=== PATIENT | male | born 1950 | race Caucasian/White ===

== ENCOUNTER 2019-02-16 19:43 | Inpatient (IN) | payer OTHER ==
--- NOTE | 2019-02-16 20:12 | PDOC ---
Rapid Medical Evaluation Time Seen by Provider: 02/16/19 20:10 Medical Evaluation: Allergies Allergy/AdvReac Type Severity Reaction Status Date / Time No Known Allergies Allergy Verified 11/02/15 11:10 02/16/19 20:10 CC: "the dentist dropped a drill bit down my throat." PE: No focal findings. Orders: nothing Patient is to proceed to ER for further evaluation. Discharge Disposition - Diagnosis Foreign body alimentary tract - Referrals - Patient Instructions - Post Discharge Activity
--- NOTE | 2019-02-16 21:29 | PDOC ---
History of Present Illness - General Chief Complaint: Foreign Body (FB) Stated Complaint: SENT BY DENTIST Time Seen by Provider: 02/16/19 20:10 - History of Present Illness Initial Comments: 02/16/19 21:27 68 y/o M w/PMH of HTN and dislipidema presents for evaluation of FB ingestion accidental from a drill bit at the dentist today. Past History - Past Medical History Allergies/Adverse Reactions: Allergies Allergy/AdvReac Type Severity Reaction Status Date / Time No Known Allergies Allergy Verified 11/02/15 11:10 Home Medications: Ambulatory Orders Amlodipine Besylate [Norvasc -] 10 mg PO DAILY 06/23/14 Lisinopril [Prinivil] 20 mg PO DAILY 06/23/14 Metoprolol Succinate [Toprol Xl -] 25 mg PO DAILY 09/19/14 Aspirin [ASA -] 81 mg PO DAILY 11/02/15 Atorvastatin Calcium 20 mg PO DAILY 11/02/15 Anemia: No Asthma: No Cancer: No Cardiac Disorders: Yes CVA: No COPD: No CHF: No Dementia: No Diabetes: No GI Disorders: No Disorders: No HTN: Yes Hypercholesterolemia: Yes Liver Disease: No Seizures: No Thyroid Disease: No - Surgical History Abdominal Surgery: No Appendectomy: No Cardiac Surgery: Yes (STENT CARDIAC X 2) Cholecystectomy: No Lung Surgery: No Neurologic Surgery: No Orthopedic Surgery: No - Psycho Social/Smoking Cessation Hx Smoking History: Never smoked Have you smoked in the past 12 months: No If you are a former smoker, when did you quit?: 2004 Hx Alcohol Use: No Drug/Substance Use Hx: No Substance Use Type: None Hx Substance Use Treatment: No Review of Systems - Review of Systems Constitutional: Yes: See HPI *Physical Exam - Vital Signs Last Vital Signs Temp Pulse Resp BP Pulse Ox 98.7 F 99 H 19 182/76 H 96 02/16/19 20:11 02/16/19 20:11 02/16/19 20:11 02/16/19 20:11 02/16/19 20:11 - Physical Exam General Appearance: Yes: Nourished, Appropriately Dressed HEENT: positive: Normal ENT Inspection, Normal Voice Neck: positive: Supple Respiratory/Chest: negative: Respiratory Distress Gastrointestinal/Abdominal: positive: Flat, Soft. negative: Tender Musculoskeletal: positive: Normal Inspection Extremity: positive: Normal Inspection, Normal Range of Motion Integumentary: positive: Normal Color, Dry, Warm Neurologic: positive: director of oncology II-XII NML intact ED Treatment Course - RADIOLOGY Radiology Studies Ordered: Category Date Time Status ABDOMEN FLAT-LATERAL [RAD] Stat Radiology 02/16/19 21:25 Ordered Medical Decision Making - Medical Decision Making 02/16/19 21:28 Discussed with ER attending, pt to be further evaluated in the main ER Discharge - Discharge Information Problems reviewed: Yes Clinical Impression/Diagnosis: Foreign body alimentary tract - Follow up/Referral - Patient Discharge Instructions - Post Discharge Activity
--- NOTE | 2019-02-16 21:59 | PDOC ---
History of Present Illness - General Chief Complaint: Foreign Body (FB) Stated Complaint: SENT BY DENTIST Time Seen by Provider: 02/16/19 20:10 History Source: Patient Exam Limitations: No Limitations - History of Present Illness Initial Comments: 02/16/19 21:48 68M with a PMH of CAD, HTN who presents to the ER after swallowing a drill bit at the dentists office. The dentist sent him for an XR to confirm if he swallowed something or not. XR confirms a sharp drill bit in abdomen. Pt denies fever, chills, abd pain, nausea, vomiting. He admits to eating after to "protect " his stomach. Denies CP, SOB. Denies hematochezia. Past History - Past Medical History Allergies/Adverse Reactions: Allergies Allergy/AdvReac Type Severity Reaction Status Date / Time No Known Allergies Allergy Verified 11/02/15 11:10 Home Medications: Ambulatory Orders Metoprolol Succinate [Toprol Xl -] 25 mg PO DAILY 09/19/14 Aspirin [ASA -] 81 mg PO DAILY 11/02/15 Atorvastatin Calcium 10 mg PO DAILY 11/02/15 Anemia: No Asthma: No Cancer: No Cardiac Disorders: Yes CVA: No COPD: No CHF: No Dementia: No Diabetes: No GI Disorders: No Disorders: No HTN: Yes Hypercholesterolemia: Yes Liver Disease: No Seizures: No Thyroid Disease: No - Surgical History Abdominal Surgery: No Appendectomy: No Cardiac Surgery: Yes (STENT CARDIAC X 2) Cholecystectomy: No Lung Surgery: No Neurologic Surgery: No Orthopedic Surgery: No - Psycho Social/Smoking Cessation Hx Smoking History: Never smoked Have you smoked in the past 12 months: No If you are a former smoker, when did you quit?: 2004 Hx Alcohol Use: No Drug/Substance Use Hx: No Substance Use Type: None Hx Substance Use Treatment: No Review of Systems - Review of Systems Able to Perform ROS?: Yes Comments:: 02/16/19 21:59 GENERAL/CONSTITUTIONAL: No fever or chills. No weakness. HEAD, EYES, EARS, NOSE AND THROAT: No change in vision. No ear pain or discharge. No sore throat. CARDIOVASCULAR: No chest pain, palpitations, or lightheadedness. RESPIRATORY: No cough, wheezing, shortness of breath, or hemoptysis. GASTROINTESTINAL: No abdominal pain, nausea, vomiting, diarrhea, or constipation. GENITOURINARY: No dysuria, frequency, hematuria, or change in urination. MUSCULOSKELETAL: No joint or muscle swelling or pain. No neck or back pain. SKIN: No rash or lesions. NEUROLOGIC: No headache, numbness, tingling, focal weakness, loss of consciousness, or change in strength/sensation. Is the patient limited Khmer proficient: No *Physical Exam - Vital Signs Last Vital Signs Temp Pulse Resp BP Pulse Ox 98.7 F 99 H 19 182/76 H 96 02/16/19 20:11 02/16/19 20:11 02/16/19 20:11 02/16/19 20:11 02/16/19 20:11 - Physical Exam Comments: 02/16/19 22:00 GENERAL: Well developed, well nourished. Awake and alert. No acute distress. HEENT: Normocephalic, atraumatic. Hearing grossly normal. Moist mucous membranes. PERRLA, EOMI. No conjunctival pallor. Sclera are non-icteric. NECK: Supple. Full ROM. No JVD. CARDIOVASCULAR: Regular rate and rhythm. No murmurs, rubs, or gallops. PULMONARY: No evidence of respiratory distress. Lungs clear to auscultation bilaterally. No wheezing, rales or rhonchi. ABDOMINAL: Soft. Non-tender. Non-distended. No rebound or guarding. MUSCULOSKELETAL: Normal range of motion at all joints. No bony deformities or tenderness. EXTREMITIES: No cyanosis. No clubbing. No edema. No calf tenderness or swelling. SKIN: Warm and dry. Normal capillary refill. No rashes. No jaundice. NEUROLOGICAL: Alert, awake, appropriate. Cranial nerves 2-12 intact. Normal speech. Gait is normal without ataxia. PSYCHIATRIC: Cooperative. Good eye contact. Appropriate mood and affect. ED Treatment Course - LABORATORY CBC & Chemistry Diagram: 02/18/19 06:00 02/18/19 06:00 - RADIOLOGY Radiology Studies Ordered: Category Date Time Status ABDOMEN & PELVIS CT W/O CONTR [CT] Stat CT Scan 02/16/19 21:37 Ordered Medical Decision Making - Medical Decision Making 02/16/19 22:00 68M with a PMH of CAD and HTN who presents after swallowing a drill bit. XR shows sharp object in abdomen. Obtaining CTAP to look for where the structure is and will d/w GI/surgery. Pt well appearing with nontender abdomen at this present time. 02/16/19 23:08 CTAP impression: The drill bit foreign body swallowed is seen within the distal portion of the jejunal loops of small bowel in the left abdomen. No evidence of bowel obstruction. Constipation. No renal stones or evidence of obstructive uropathy. Appendix is normal. Dr. Oliva paged. 02/16/19 23:26 Case d/w Dr. Wray, covering for Dr. Oliva, who recommends obs. Microblogged for admission. 02/16/19 23:58 Last meal at 1830/1900 today. Last asa was Saturday. Discharge - Discharge Information Problems reviewed: Yes Clinical Impression/Diagnosis: Foreign body alimentary tract Qualifiers: Encounter type: initial encounter Qualified Code(s): T18.9XXA - Foreign body of alimentary tract, part unspecified, initial encounter Condition: Guarded - Admission Yes - Follow up/Referral - Patient Discharge Instructions - Post Discharge Activity
--- NOTE | 2019-02-16 23:22 | PDOC ---
*Physical Exam - Vital Signs Last Vital Signs Temp Pulse Resp BP Pulse Ox 98.7 F 99 H 19 182/76 H 96 02/16/19 20:11 02/16/19 20:11 02/16/19 20:11 02/16/19 20:11 02/16/19 20:11 Medical Decision Making - Medical Decision Making 02/16/19 23:21 patient transferred to us from fast [facility] with a sharp foreign body confirmed on CT scan in the jejunum consistent with history of swallowed drillbit at the dentist Case discussed with surgery who recommends admission until the foreign body has passed Patient is currently in no distress and has had no vomiting, he has no active abdominal pain and there are no signs of free air on the scan Discharge - Discharge Information Problems reviewed: Yes Clinical Impression/Diagnosis: Foreign body alimentary tract - Follow up/Referral - Patient Discharge Instructions - Post Discharge Activity
--- NOTE | 2019-02-16 23:23 | CONSULT ---
Consult Consult Specialty:: General Surgery Reason for Consultation:: sharp ingested foreign body - History of Present Illness Chief Complaint: accidentally ingested dental drill bit? History of Present Illness: 68 yo man PMH CAD (2 stents in 2005), HTN and HTN who presents to the ER after swallowing a drill bit at the dentists office. The dentist sent him for an Xray to confirm if he swallowed something or not. Xray confirms a sharp drill bit in his jejunum. Patient denies fever, chills, abdominal pain, nausea, vomiting. He admits to eating after to "protect" his stomach. Denies chest pain, SOB or hematochezia. Denies tobacco use, alcohol abuse or use of illicit drugs. Has history of anemia due to diverticular bleeding. Recent normal colonoscopy. Has FH of DM and HTN in mother. We were called to assess. - History Source History Provided By: Patient, Medical Record - Past Medical History Cardio/Vascular: Yes: CAD, HTN - Past Surgical History Past Surgical History: Yes: Stent - Alcohol/Substance Use Hx Alcohol Use: No - Smoking History Smoking history: Never smoked Have you smoked in the past 12 months: No If you are a former smoker, when did you quit?: 2004 - Social History Usual Living Arrangement: With Child ADL: Independent History of Recent Travel: No Home Medications - Allergies Allergies/Adverse Reactions: Allergies Allergy/AdvReac Type Severity Reaction Status Date / Time No Known Allergies Allergy Verified 11/02/15 11:10 - Home Medications Home Medications: Ambulatory Orders Metoprolol Succinate [Toprol Xl -] 25 mg PO DAILY 09/19/14 Aspirin [ASA -] 81 mg PO DAILY 11/02/15 Atorvastatin Calcium 10 mg PO DAILY 11/02/15 Review of Systems - Review of Systems Constitutional: denies: Chills, Fever Eyes: denies: Blind Spots, Recent Change in Vision HENT: denies: Difficult Swallowing, Throat Pain Neck: denies: Decreased ROM, Pain on Movement Cardiovascular: denies: Chest Pain, Palpitations Respiratory: denies: Cough, SOB Gastrointestinal: denies: Abdominal Pain, Constipation, Diarrhea, Dysphagia, Rectal Bleeding Genitourinary: denies: Burning, Discharge, Testicular Pain Breasts: denies: Breast Implants, Pain Musculoskeletal: denies: Joint Swelling, Muscle Cramps Integumentary: denies: Bruising, Lesions Neurological: denies: Seizure, Syncope Endocrine: denies: Unexplained Weight Gain, Unexplained Weight Loss Hematology/Lymphatic: denies: Easily Bruised, Excessive Bleeding Psychiatric: denies: Anxiety, Depression Physical Exam Vital Signs: Vital Signs Temperature 98.7 F 02/16/19 20:11 Pulse Rate 99 H 02/16/19 20:11 Respiratory Rate 19 02/16/19 20:11 Blood Pressure 182/76 H 02/16/19 20:11 O2 Sat by Pulse Oximetry (%) 96 02/16/19 20:11 Constitutional: Yes: Well Nourished, No Distress, Calm Eyes: Yes: Conjunctiva Clear, EOM Intact HENT: Yes: Atraumatic, Normocephalic Neck: Yes: Supple, Trachea Midline Cardiovascular: Yes: Regular Rate and Rhythm, S1, S2 Respiratory: Yes: Regular, CTA Bilaterally Gastrointestinal: Yes: Normal Bowel Sounds, Soft. No: Distention, Hematemesis, Hyperactive Bowel Sounds, Hypoactive Bowel Sounds, Palpable Mass, Pulsatile Mass , Tenderness, Tenderness, Epigastrium, Tenderness, Rebound, Vomiting ...Rectal Exam: Yes: Sphincter Tone Normal. No: Hemorrhoids/External, Induration, Mass Renal/: No: CVA Tenderness - Left, CVA Tenderness - Right Musculoskeletal: No: Muscle Pain, Muscle Weakness Extremities: No: Cold, Cool, Cyanosis Edema: No Peripheral Pulses WNL: Yes Integumentary: No: Incision, Jaundice, Rash Neurological: Yes: Alert, Oriented Psychiatric: Yes: Alert, Oriented Imaging - Results X-ray: Report Reviewed, Image Reviewed (Abdominal xrays show minimal movement over 10-12 hours) Cat Scan: Report Reviewed, Image Reviewed Problem List - Problems (1) Foreign body alimentary tract Assessment/Plan: 68 yo male with unintentional ingested sharp foreign body [id number] with apparent failure to progress. He has no indication of perforated viscus, no peritonitis. serial imaging has shown that over intervening 10-12hours there is minimal progress from mid-jejunum to colon. Discussed the option to proceed with operative exploration as the FB appears to be inaccessible endoscopically. We will follow closely today with non-operative manuevers today and decide on exploration later. NPO and IVF hydration IV reglan GI consult hold ASA serial abdominal exams and imaging suppository, mild bowel prep, and prokinetic will follow Thank you for the opportunity to participate in the care of this patient. Problems reviewed: Yes Code(s): T18.9XXA - FOREIGN BODY OF ALIMENTARY TRACT, PART UNSP, INIT ENCNTR Qualifiers: Encounter type: initial encounter Qualified Code(s): T18.9XXA - Foreign body of alimentary tract, part unspecified, initial encounter (2) HTN (hypertension) Problems reviewed: Yes Code(s): I10 - ESSENTIAL (PRIMARY) HYPERTENSION Qualifiers: Hypertension type: essential hypertension Qualified Code(s): I10 - Essential (primary) hypertension (3) CAD (coronary artery disease) Problems reviewed: Yes Code(s): I25.10 - ATHSCL HEART DISEASE OF [place] CORONARY ARTERY W/O ANG PCTRS Qualifiers: Coronary Disease-Associated Artery/Lesion type: bypass graft [place] vs. transplanted heart: [place] heart (4) STEMI (ST elevation myocardial infarction) Problems reviewed: Yes Code(s): I21.3 - ST ELEVATION (STEMI) MYOCARDIAL INFARCTION OF UNSP SITE
[2019-02-16 23:40] LABS: BASO % 0.6 % (0-2.0); EOS % 1.9 % (0-4.5); HEMOGLOBIN 11.4 GM/dL (11.7-16.9); LYMPH % 26.5 % (8-40); MCH 28.3 pg (25.7-33.7); MCHC 32.6 g/dl (32.0-35.9); MEAN CELL VOLUME 86.8 fl (80-96); MEAN PLT VOLUME 10.6 fl (7.5-11.1); MONO % 11.7 % (3.8-10.2); NEUT % 59.3 % (42.8-82.8); PLATELET COUNT 165 K/MM3 (134-434); RBC 4.02 M/mm3 (4.00-5.60); RDW 17.8 % (11.9-15.9); WHITE BLOOD COUNT 6.4 K/mm3 (4.0-10.0)
[2019-02-16 23:46] LABS: INR 1.17 (0.83-1.09); PROTHROMBIN TIME (PATIENT) 13.8 SEC (9.7-13.0)
[2019-02-17 00:20] LABS: ALBUMIN 3.8 g/dl (3.4-5.0); BILIRUBIN,TOTAL 0.7 mg/dL (0.2-1); BLOOD UREA NITROGEN 13.7 mg/dL (7-18); CALCIUM 8.9 mg/dL (8.5-10.1); CREATININE 1.2 mg/dL (0.55-1.3); POTASSIUM 3.7 mmol/L (3.5-5.1); TOT PROT 7.4 g/dl (6.4-8.2)
--- NOTE | 2019-02-17 01:17 | PN ---
Teaching Attending Note Name of Resident: Long Low ATTENDING PHYSICIAN STATEMENT I saw and evaluated the patient. I reviewed the resident's note and discussed the case with the resident. I agree with the resident's findings and plan as documented. SUBJECTIVE: Patient is a 68 year old man with a PMH of CAD (2 stents in 2005), HTN and HTN who presents to the ER after swallowing a drill bit at the dentists office. The dentist sent him for an Xray to confirm if he swallowed something or not. Xray confirms a sharp drill bit in his jejunum. Patient denies fever, chills, abdominal pain, nausea, vomiting. He admits to eating after to "protect" his stomach. Denies chest pain, SOB or hematochezia. Denies tobacco use, alcohol abuse or use of illicit drugs. Has history of anemia due to diverticular bleeding. Recent normal colonoscopy. Has FH of DM and HTN in mother. OBJECTIVE: Alert Vital Signs Period Temp Pulse Resp BP Sys/Parr Pulse Ox Last 24 Hr 98.7 F 99 19 182/76 96 HEENT: No Jaundice, eye redness or discharge, PERRLA, EOMI. Normocephalic, atraumatic. External ears are normal and hearing is grossly intact. No nasal discharge. Neck: Supple, nontender. No palpable adenopathy or thyromegaly. No JVD Chest: Good effort. Clear to auscultation and percussion. Heart: Regular. No S3, rub or murmur Abdomen: Not distended, soft, nontender and no HSM. No rebound or guarding. Normal bowel sounds. Ext: Peripheral pulses intact. No leg edema. Skin: Warm and dry. No petechiae, rash or ecchymosis. Neuro: Alert. Oriented x3. CN 2-12 grossly intact. Sensation grossly intact in all four extremities and DTR are symmetric. Psych: Appropriate mood and affect. Good insight. Home Medications Medication Instructions Recorded Amlodipine Besylate [Norvasc -] 10 mg PO DAILY 06/23/14 Lisinopril [Prinivil] 20 mg PO DAILY 06/23/14 Metoprolol Succinate [Toprol Xl -] 25 mg PO DAILY 09/19/14 Aspirin [ASA -] 81 mg PO DAILY 11/02/15 Atorvastatin Calcium 20 mg PO DAILY 11/02/15 Abnormal Lab Results 02/16/19 02/16/19 02/16/19 23:22 23:22 23:22 Hgb 11.4 L Hct 35.0 L D RDW 17.8 H Monocytes % 11.7 H PT with INR 13.80 H INR 1.17 H Sodium 147 H Chloride 111 H Anion Gap 7 L Random Glucose 107 H ASSESSMENT AND PLAN: 1. Ingestion of foreign body - CT scan shows drill bit in distal jejunum. Will monitor with daily imaging studies until he expels the object. Will keep him NPO and monitor for bloody stools. Surgery consulted. Will continue comprehensive care for all of patients comorbid conditions. 2. Anemia - Cause unclear. Will do basic anemia work up including serial stool guaiacs, reticulocyte count and iron studies. 3. Uncontrolled Hypertension - Restart suitable outpatient antihypertensive drugs when clinically appropriate and add HCTZ 12.5 mg q am. Revise regimen to ensure [id number] excellent BP control and vp & general counsel patient on the injurious effects of uncontrolled hypertension. Nonpharmacologic measures to control hypertension like weight loss, salt restriction and exercise discussed. Importance of adherence to treatment regimen and attainment of normotension emphasized. 4. DVT prophylaxis - Lovenox 40 mg SQ q 24 hours. 5. Advance directives - Full code
[2019-02-17] MEDS ORDERED: METOPROLOL TARTRATE 5 MG/5 ML VIAL IVPUSH ONE (01:25)
[2019-02-17] MEDS ORDERED: METOPROLOL TARTRATE 5 MG/5 ML VIAL ONE (02:31)
[2019-02-17] MEDS: SODIUM CHLORIDE 1,000 ML IV SCH (03:23)
--- NOTE | 2019-02-17 03:24 | HP ---
CHIEF COMPLAINT: foreign body ingestion PCP: none HISTORY OF PRESENT ILLNESS: 68 y.o. M PMH HTN, HLD, CAD s/p 2 stents placed 2005, diverticulosis w/ GI bleeds (last episode lower GIB in March, received 2 units platelets @ this time) presenting from his dentist's office for ingestion of a ~3cm drillbit from dentist equipment. Pt was at his dentists office around 12pm for unknown dental procedure when the dentist noticed a missing piece from the drillbit and subsequently sent the patient for imaging. Abdominal XR revealed the foreign body within patient's jejunum so patient was told to come to the ED at 7pm. Mr. Martin is asymptomatic with no complaints of pain/ abdominal discomfort or cramping/ oral or rectal bleeding. ER course was notable for: (1) abd XR & abd CT confirms dental drillbit present in prox jejunum-- has remained in relatively same location since 1st abd XR done by pt's dentist (2) BP 182/76--- repeat on my exam 168/75 (3) Recent Travel: denies PAST MEDICAL HISTORY: as per HPI. last colonoscopy in march showing diverticulosis PAST SURGICAL HISTORY: R- carotid endarterectomy @ [facility] Social History: Lives alone in [place] but spends much of his time in [place] with his daughter Smoking: quit cigarettes 13 yrs ago Alcohol: 2-3 beers on weekends Drugs: denies Allergies No Known Allergies Allergy (Verified 11/02/15 11:10) HOME MEDICATIONS: Home Medications Medication dose Metoprolol Succinate [Toprol Xl -] 25 mg PO DAILY Aspirin [ASA -] 81 mg PO q3days Atorvastatin Calcium 10 mg PO DAILY REVIEW OF SYSTEMS CONSTITUTIONAL: Absent: fever, chills, diaphoresis, generalized weakness, malaise, loss of appetite, weight change HEENT: Absent: rhinorrhea, nasal congestion, throat pain, throat swelling, difficulty swallowing, mouth swelling, ear pain, eye pain, visual changes CARDIOVASCULAR: Absent: chest pain, syncope, palpitations, irregular heart rate, lightheadedness , peripheral edema RESPIRATORY: Absent: cough, shortness of breath, dyspnea with exertion, orthopnea, wheezing, stridor, hemoptysis GASTROINTESTINAL: Absent: abdominal pain, abdominal distension, nausea, vomiting, diarrhea, constipation, melena, hematochezia GENITOURINARY: Absent: dysuria, frequency, urgency, hesitancy, hematuria, flank pain, genital pain MUSCULOSKELETAL: Absent: myalgia, arthralgia, joint swelling, back pain, neck pain SKIN: Absent: rash, itching, pallor HEMATOLOGIC/IMMUNOLOGIC: Absent: easy bleeding, easy bruising, lymphadenopathy, frequent infections ENDOCRINE: Absent: unexplained weight gain, unexplained weight loss, heat intolerance, cold intolerance NEUROLOGIC: Absent: headache, focal weakness or paresthesias, dizziness, unsteady gait, seizure, mental status changes, bladder or bowel incontinence PSYCHIATRIC: Absent: anxiety, depression, suicidal or homicidal ideation, hallucinations. PHYSICAL EXAMINATION Vital Signs - 24 hr 02/16/19 02/17/19 20:11 02:56 Temperature 98.7 F 98.2 F Pulse Rate 99 H Pulse Rate [ 58 L Left Radial] Respiratory 19 18 Rate Blood Pressure 182/76 H Blood Pressure 152/78 [Left Arm] O2 Sat by Pulse 96 98 Oximetry (%) GENERAL: Awake, alert, and fully oriented, in no acute distress. HEENT: Mild conjunctival pallor. MMM. No oral sores/ bleeding noted. No dysgeusia. LUNGS: CTABL. No wheezing/ no crackles/ no incr work of breathing HEART: Regular rate and rhythm, normal S1 and S2 without murmurs. cap refill <2s ABDOMEN: Soft, nontender, not distended, normoactive bowel sounds. Did not perform deep palpation as to avoid aggravating foreign body. UPPER EXTREMITIES: 2+ pulses, warm, well-perfused. No cyanosis. Mild finger clubbing noted. No peripheral edema. LOWER EXTREMITIES: 2+ pulses, warm, well-perfused. No calf tenderness. No peripheral edema. PSYCHIATRIC: Cooperative. Good eye contact. Appropriate mood and affect. Laboratory Results - last 24 hr 02/16/19 02/16/19 02/16/19 23:22 23:22 23:22 WBC 6.4 RBC 4.02 Hgb 11.4 L Hct 35.0 L D MCV 86.8 MCH 28.3 D MCHC 32.6 RDW 17.8 H Plt Count 165 MPV 10.6 D Absolute Neuts (auto) 3.8 Neutrophils % 59.3 Lymphocytes % 26.5 Monocytes % 11.7 H Eosinophils % 1.9 D Basophils % 0.6 Nucleated RBC % 0 PT with INR 13.80 H INR 1.17 H Sodium 147 H Potassium 3.7 Chloride 111 H Carbon Dioxide 29 Anion Gap 7 L BUN 13.7 Creatinine 1.2 Est GFR (CKD-EPI)AfAm 71.58 Est GFR (CKD-EPI)NonAf 61.76 Random Glucose 107 H Calcium 8.9 Total Bilirubin 0.7 AST 23 ALT 23 Alkaline Phosphatase 65 Total Protein 7.4 Albumin 3.8 ASSESSMENT/PLAN: 68 y.o. M PMH HTN, HLD, CAD s/p 2 stents placed 2005, diverticulosis w/ GI bleeds presenting from his dentists office for foreign body ingestion. #Foreign body ingestion -Confirmed on abd XR/ abd CT -Patient clinically stable -NPO -Surgery (Dr. delacruz) consulted--- NPO, watchful waiting, will reassess foreign body location in AM w/ repeat abd XR -C/w IVF #Hx of anemia -mild conjunctival pallor on exam -no active bleeding orally/ rectally -Hgb 11.4 -F/u iron studies, ferritin, transferrin, reticulocyte count -Serial FOBTs #HTN -S/p 5mg Lopressor IV -Pt NPO--- once cleared to advance diet continue with metoprolol 25mg daily ( home med) and adding HCTZ 12.5mg daily in mornings #FEN -NS @ 42mL/hr -monitor lytes -NPO #DVT PPX -early ambulation, SCDs -Holding LVX pending AM surgery recs Visit type - Emergency Visit Emergency Visit: Yes ED Registration Date: 02/17/19 Care time: The patient presented to the Emergency Department on the above date and was hospitalized for further evaluation of their emergent condition. - New Patient This patient is new to me today: Yes Date on this admission: 02/17/19 - Critical Care Critical Care patient: No ATTENDING PHYSICIAN STATEMENT I saw and evaluated the patient. I reviewed the resident's note and discussed the case with the resident. I agree with the resident's findings and plan as documented. SUBJECTIVE: OBJECTIVE: ASSESSMENT AND PLAN:
[2019-02-17 06:37] LABS: HEMOGLOBIN 10.6 GM/dL (11.7-16.9); MCH 28.5 pg (25.7-33.7); MCHC 32.9 g/dl (32.0-35.9); MEAN CELL VOLUME 86.4 fl (80-96); MEAN PLT VOLUME 10.2 fl (7.5-11.1); PLATELET COUNT 161 K/MM3 (134-434); RBC 3.71 M/mm3 (4.00-5.60); RDW 17.6 % (11.9-15.9); WHITE BLOOD COUNT 5.2 K/mm3 (4.0-10.0)
[2019-02-17 07:15] LABS: ALBUMIN 3.4 g/dl (3.4-5.0); BILIRUBIN,TOTAL 0.8 mg/dL (0.2-1); BLOOD UREA NITROGEN 9.8 mg/dL (7-18); CALCIUM 8.6 mg/dL (8.5-10.1); MAGNESIUM 1.9 mg/dL (1.8-2.4); PHOSPHOROUS 2.4 mg/dL (2.5-4.9); POTASSIUM 3.7 mmol/L (3.5-5.1); TOT PROT 6.6 g/dl (6.4-8.2)
[2019-02-17] MEDS ORDERED: METOCLOPRAMIDE HCL INJECTION 10 MG/2 ML VIAL IVPUSH ONE (07:27)
[2019-02-17] MEDS: BISACODYL 10 MG SUPP.RECT RC ONE (09:57)
--- NOTE | 2019-02-17 10:03 | EKG ---
Test Reason : Blood Pressure : / mmHG Vent. Rate : 061 BPM Atrial Rate : 061 BPM P-R Int : 176 ms QRS Dur : 088 ms QT Int : 446 ms P-R-T Axes : 048 -34 039 degrees QTc Int : 448 ms SINUS RHYTHM WITH PREMATURE ATRIAL COMPLEXES IN A PATTERN OF BIGEMINY LEFT AXIS DEVIATION MODERATE VOLTAGE CRITERIA FOR LVH, MAY BE NORMAL VARIANT ABNORMAL ECG WHEN COMPARED WITH ECG OF 19-SEP-2014 13:49, PREMATURE ATRIAL COMPLEXES ARE NOW PRESENT Confirmed by MD ANA, SETH ([id number]) on 02/17/2019 10:03:02 AM Referred By: Confirmed By:SETH PEREZ MD
--- NOTE | 2019-02-17 13:56 | PN ---
Teaching Attending Note Name of Resident: Dilip Rachel ATTENDING PHYSICIAN STATEMENT I saw and evaluated the patient. I reviewed the resident's note and discussed the case with the resident. I agree with the resident's findings and plan as documented. SUBJECTIVE:asymptomatic. denies Cp, SOB, fever, chills, N/V/C/D, abdominal pain. no BM since arrival. OBJECTIVE: Last Vital Signs Temp Pulse Resp BP Pulse Ox 98.4 F 63 20 143/90 98 02/17/19 10:00 02/17/19 10:00 02/17/19 10:00 02/17/19 10:00 02/17/19 09:00 General NAD CV S1 s2 RRR no murmur/rub/gallop Lungs CTA B/L no wheezing/rales/rhonchi Abdomen soft NT/ND normoactive BS ASSESSMENT AND PLAN: 68yo M with pMH CAD s/p stents x2 in 2005 and HTN sent to the ER by his dentist after it was noticed that he swallowed the drill bit 1. Swallowed foreign body- swallowed drill bit, found to be in the jejunum on arrival. this Am does not seem it progressed much since yesterday. too far down to be removed endoscopically. cont NPO and IVF. consult GI. will d/w surgery adn GI about waitful management vs gentle laxatives. serial abdominal exams and imaging 2. iron def anemia- hgb stable. offered venofer but patient refused. states he is already on iron supplements and does not want anymore treatment. encouraged to increase po intake on discharge as levels are still low 3. HTn- controlled. hold oral agents 4. DVT ppx- lovenox
--- NOTE | 2019-02-17 14:02 | CON.GI ---
Consult Consult Specialty:: GI Referred by:: Hospitalist Reason for Consultation:: Foreign Body Ingestion - History of Present Illness Chief Complaint: Swallowed dental drill bit History of Present Illness: 68M sent to ER by his dentist after he swallowed a 1.27-1.9 cm in length dental drill bit. He denies abdominal pain. Intial CT scan yesterday revealed the foreign body to be in distal jejunum. AXR performed today revealed some progression of the drill bit in the small bowel. He states having had two colonoscopies in his life, one in 2014 (normal per patient) and one in 2018 ( for rectal bleeding. diverticulosis noted). There is no family history of colorectal cancer. - History Source History Provided By: Patient, Medical Record - Past Medical History Cardio/Vascular: Yes: CAD, HTN, Hyperlipdemia, Other (PVD) - Past Surgical History Past Surgical History: Yes: Carotid Endarterectomy, Stent (Cardiac stents) - Alcohol/Substance Use Hx Alcohol Use: No - Smoking History Smoking history: Never smoked Have you smoked in the past 12 months: No If you are a former smoker, when did you quit?: 2004 - Social History Usual Living Arrangement: With Child ADL: Independent History of Recent Travel: No Home Medications - Allergies Allergies/Adverse Reactions: Allergies Allergy/AdvReac Type Severity Reaction Status Date / Time No Known Allergies Allergy Verified 11/02/15 11:10 - Home Medications Home Medications: Ambulatory Orders Metoprolol Succinate [Toprol Xl -] 25 mg PO DAILY 09/19/14 Aspirin [ASA -] 81 mg PO DAILY 11/02/15 Atorvastatin Calcium 10 mg PO DAILY 11/02/15 Family Medical History Other Family History: Father: : 63: [place]. Mother: : 91: "old age". 13 siblings: 5 brothers: 1 MVA, 2 drug/alcohol related complications, 9 sisters. 1 daughter: DM II. No family history of colorectal cancer Review of Systems - Review of Systems Constitutional: denies: Fever Cardiovascular: denies: Chest Pain Respiratory: denies: SOB Gastrointestinal: denies: Abdominal Pain, Melena, Rectal Bleeding Physical Exam-GI Vital Signs: Vital Signs Temperature 98.4 F 02/17/19 10:00 Pulse Rate 63 02/17/19 10:00 Respiratory Rate 20 02/17/19 10:00 Blood Pressure 143/90 02/17/19 10:00 O2 Sat by Pulse Oximetry (%) 98 02/17/19 09:00 Constitutional: Yes: Calm Eyes: No: Sclera Icterus Cardiovascular: Yes: Regular Rate and Rhythm. No: Murmur Respiratory: Yes: CTA Bilaterally Gastrointestinal Inspection: No: Distention, Scars ...Auscultate: Yes: Normoactive Bowel Sounds ...Palpate: Yes: Soft. No: Splenomegaly, Tenderness ...Percussion: No: Tympanitic Edema: No (No LE edema) Neurological: Yes: Alert Labs: CBC, BMP 02/17/19 05:30 02/17/19 05:30 INR, PTT INR 1.17 (0.83-1.09) H 02/16/19 23:22 Problem List - Problems (1) Foreign body alimentary tract Assessment/Plan: Sharp foreign body ingestion yesterday. Day number 2. Beyond upper GI tract at time of ER visit. Asymptomatic Surgery following Continued monitoring Daily AXR to assure continued progression passage of drill bit NPO for now IV Hydration Code(s): T18.9XXA - FOREIGN BODY OF ALIMENTARY TRACT, PART UNSP, INIT ENCNTR Qualifiers: Encounter type: initial encounter Qualified Code(s): T18.9XXA - Foreign body of alimentary tract, part unspecified, initial encounter (2) Anemia Code(s): D64.9 - ANEMIA, UNSPECIFIED
[2019-02-17] MEDS ORDERED: SENNOSIDES 8.8 MG/5 ML BULK BOTTLE PO ONE (14:32)
--- NOTE | 2019-02-17 19:31 | PN ---
Physical Exam: SUBJECTIVE: Patient seen and examined. Denies symptoms of abdominal pain, nausea , vomiting, blood per rectum. Endorses appetite OBJECTIVE: Vital Signs Period Temp Pulse Resp BP Sys/Parr Pulse Ox Last 24 Hr 97.8 F-99.2 F 48-99 18-20 138-182/47-90 96-100 GENERAL: The patient is awake, alert, and fully oriented, in no acute distress. HEAD: Normal with no signs of trauma. EYES: sclera anicteric, mild conjunctival pallor ENT: oral mucosa moist NECK: Trachea midline, full range of motion, supple. LUNGS: Breath sounds equal, clear to auscultation bilaterally, no wheezes, no crackles, no accessory muscle use. HEART: Regular rate and rhythm, S1, S2 without murmur, rub or gallop. ABDOMEN: Soft, nontender, nondistended, normoactive bowel sounds, no guarding, no rebound, no hepatosplenomegaly, no masses. RECTAL: no external masses noted, no anal fissueres, good sphincter tone, no firm nodules noted in rectum EXTREMITIES: 2+ pulses, warm, well-perfused NEUROLOGICAL: Cranial nerves II through XII grossly intact. Normal speech, gait normal. Laboratory Results - last 24 hr 02/16/19 02/16/19 02/16/19 23:15 23:22 23:22 WBC 6.4 RBC 4.02 Hgb 11.4 L Hct 35.0 L D MCV 86.8 MCH 28.3 D MCHC 32.6 RDW 17.8 H Plt Count 165 MPV 10.6 D Absolute Neuts (auto) 3.8 Neutrophils % 59.3 Lymphocytes % 26.5 Monocytes % 11.7 H Eosinophils % 1.9 D Basophils % 0.6 Nucleated RBC % 0 Retic Count PT with INR INR Sodium 147 H Potassium 3.7 Chloride 111 H Carbon Dioxide 29 Anion Gap 7 L BUN 13.7 Creatinine 1.2 Est GFR (CKD-EPI)AfAm 71.58 Est GFR (CKD-EPI)NonAf 61.76 Random Glucose 107 H Calcium 8.9 Phosphorus Magnesium Iron TIBC Iron Saturation Unsaturated IBC Ferritin Total Bilirubin 0.7 AST 23 ALT 23 Alkaline Phosphatase 65 Total Protein 7.4 Albumin 3.8 Blood Type O POSITIVE Antibody Screen Negative 02/16/19 02/17/19 02/17/19 23:22 04:20 04:20 WBC RBC Hgb Hct MCV MCH MCHC RDW Plt Count MPV Absolute Neuts (auto) Neutrophils % Lymphocytes % Monocytes % Eosinophils % Basophils % Nucleated RBC % Retic Count 1.03 PT with INR 13.80 H INR 1.17 H Sodium Potassium Chloride Carbon Dioxide Anion Gap BUN Creatinine Est GFR (CKD-EPI)AfAm Est GFR (CKD-EPI)NonAf Random Glucose Calcium Phosphorus Magnesium Iron 40 L TIBC 332 Iron Saturation 12 L Unsaturated IBC 292 H Ferritin 15.9 Total Bilirubin AST ALT Alkaline Phosphatase Total Protein Albumin Blood Type Antibody Screen 02/17/19 02/17/19 05:30 05:30 WBC 5.2 RBC 3.71 L Hgb 10.6 L Hct 32.0 L MCV 86.4 MCH 28.5 MCHC 32.9 RDW 17.6 H Plt Count 161 MPV 10.2 Absolute Neuts (auto) Neutrophils % Lymphocytes % Monocytes % Eosinophils % Basophils % Nucleated RBC % Retic Count PT with INR INR Sodium 145 Potassium 3.7 Chloride 111 H Carbon Dioxide 27 Anion Gap 7 L BUN 9.8 Creatinine 1.0 Est GFR (CKD-EPI)AfAm 89.23 Est GFR (CKD-EPI)NonAf 76.99 Random Glucose 105 Calcium 8.6 Phosphorus 2.4 L Magnesium 1.9 Iron TIBC Iron Saturation Unsaturated IBC Ferritin Total Bilirubin 0.8 AST 20 ALT 20 Alkaline Phosphatase 59 Total Protein 6.6 Albumin 3.4 Blood Type Antibody Screen Active Medications Generic Name Dose Route Start Last Admin Trade Name Freq PRN Reason Stop Dose Admin Atorvastatin Calcium 20 mg 02/17/19 22:00 Lipitor - PO HS ROXANA Enoxaparin Sodium 40 mg 02/17/19 10:00 Lovenox - SQ DAILY ROXANA Hydrochlorothiazide 12.5 mg 02/17/19 10:00 Hctz - PO DAILY ROXANA Sodium Chloride 1,000 mls @ 42 mls/hr 02/17/19 02:30 02/17/19 03:23 Normal Saline - IV 42 mls/hr ASDIR ROXANA Administration Metoprolol Succinate 25 mg 02/17/19 10:00 Toprol Xl - PO DAILY ROXANA Vital Signs Temp 98.4 F 02/17/19 16:20 Pulse 59 L 02/17/19 16:20 Resp 20 02/17/19 16:20 BP 159/65 02/17/19 16:20 Pulse Ox 98 02/17/19 09:00 Intake & Output 02/16/19 02/17/19 02/17/19 23:59 11:59 23:59 Intake Total 42 410 Balance 42 410 Weight 70.488 kg Intake: IV 42 400 Normal Saline - 1,000 ml 42 400 @ 42 mls/hr IV ASDIR ROXANA Rx#:[id number] Oral 10 Other: Voiding Method Toilet # Unmeasured Voids Void 2 Bowel Movement No # Bowel Movements 1 Height 5 ft 10 in Body Mass Index (BMI) 22.3 Weight Measurement Method Built in Bedscale Standing Scale ASSESSMENT/PLAN: 68 y.o. M PMH HTN, HLD, CAD s/p 2 stents placed 2005, diverticulosis w/ GI bleeds presenting from his dentists office for foreign body ingestion, concern for risk of perforation. #Foreign body ingestion -KUB(02/16/19): metallic foregin body seen in L hemiabd -KUB(02/17/19): metallic FB seen in RLQ -NPO -Surgery (Dr. delacruz) consulted --NPO --serial abd exams, serial KUBs, --motility trial: reglan(IV), suppository, senna -C/w IVF #Hx of anemia -Hgb 11.4(02/16/19) -iron studies --reticulocytes 1.03 --transferrin pending, iron 40, TIBC 332, iron sat 12 #HTN -- normotensive -S/p 5mg Lopressor IV -holding home meds #FEN -NS @ 42mL/hr -monitor lytes -NPO #DVT PPX -early ambulation, SCDs -Holding LVX pending possible surgery Visit type - Emergency Visit Emergency Visit: No - New Patient This patient is new to me today: Yes Date on this admission: 02/17/19 - Critical Care Critical Care patient: No ATTENDING PHYSICIAN STATEMENT I saw and evaluated the patient. I reviewed the resident's note and discussed the case with the resident. I agree with the resident's findings and plan as documented. SUBJECTIVE: OBJECTIVE: ASSESSMENT AND PLAN:
[2019-02-17] MEDS ORDERED: ATORVASTATIN CA 20 MG TABLET (FP) PO SCH (22:00)
[2019-02-17] MEDS ORDERED: SENNOSIDES 8.8 MG/5 ML BULK BOTTLE PO SCH (22:00)
[2019-02-18 06:52] LABS: HEMATOCRIT 32.8 % (35.4-49); HEMOGLOBIN 10.8 GM/dL (11.7-16.9); MCH 28.4 pg (25.7-33.7); MCHC 32.8 g/dl (32.0-35.9); MEAN CELL VOLUME 86.5 fl (80-96); MEAN PLT VOLUME 10.3 fl (7.5-11.1); PLATELET COUNT 156 K/MM3 (134-434); RBC 3.79 M/mm3 (4.00-5.60); RDW 17.9 % (11.9-15.9); WHITE BLOOD COUNT 5.5 K/mm3 (4.0-10.0)
[2019-02-18 07:26] LABS: BLOOD UREA NITROGEN 9.4 mg/dL (7-18); CALCIUM 8.5 mg/dL (8.5-10.1); CREATININE 0.9 mg/dL (0.55-1.3); POTASSIUM 3.5 mmol/L (3.5-5.1)
[2019-02-18] MEDS: SODIUM CHLORIDE 1,000 ML IV SCH (09:53)
--- NOTE | 2019-02-18 10:20 | PN ---
Progress Note, Physician History of Present Illness: 68 yo man PMH CAD (2 stents in 2005), HTN and HTN who presents to the ER after swallowing a drill bit at the dentists office. The dentist sent him for an Xray to confirm if he swallowed something or not. He has been stable with out abdominal pain. - Current Medication List Current Medications: Active Medications Atorvastatin Calcium (Lipitor -) 20 mg PO HS ROXANA Bisacodyl (Dulcolax Suppository -) 10 mg HI ONCE ONE Stop: 02/18/19 10:16 Enoxaparin Sodium (Lovenox -) 40 mg SQ DAILY ROXANA Hydrochlorothiazide (Hctz -) 12.5 mg PO DAILY ROXANA Sodium Chloride (Normal Saline -) 1,000 mls @ 42 mls/hr IV ASDIR ROXANA Last Admin: 02/18/19 09:53 Dose: Not Given Lactated Ringer's (Lactated Ringers Solution) 1,000 ml in 1,000 mls @ 125 mls/ hr IV ASDIR ROXANA Metoclopramide HCl (Reglan Injection -) 10 mg IVPUSH ONCE ONE Stop: 02/18/19 10:17 Metoprolol Succinate (Toprol Xl -) 25 mg PO DAILY ROXANA Senna (Senna Oral Solution -) 8.8 mg PO ONCE ONE Stop: 02/18/19 10:16 - Objective Vital Signs: Vital Signs Temperature 98.1 F 02/18/19 09:57 Pulse Rate 65 02/18/19 09:57 Respiratory Rate 20 02/18/19 09:57 Blood Pressure 135/62 02/18/19 09:57 O2 Sat by Pulse Oximetry (%) 98 02/18/19 09:00 Intake & Output 02/17/19 02/18/19 02/18/19 23:59 07:59 15:59 Intake Total 410 462 Balance 410 462 Intake: IV 400 462 Normal Saline - 1,000 ml 400 462 @ 42 mls/hr IV ASDIR ROXANA Rx#:[id number] IVPB 0 Oral 10 Other: Voiding Method Toilet Toilet # Unmeasured Voids Void 2 Bowel Movement No # Bowel Movements 1 Vital Signs Period Temp Pulse Resp BP Sys/Parr Pulse Ox Last 24 Hr 97.8 F-98.5 F 59-88 19-20 135-159/56-93 98-100 Constitutional: Yes: Well Nourished, No Distress, Calm Eyes: Yes: Conjunctiva Clear, EOM Intact HENT: Yes: Atraumatic, Normocephalic Neck: Yes: Supple, Trachea Midline Cardiovascular: Yes: Regular Rate and Rhythm, S1, S2 Respiratory: Yes: Regular, CTA Bilaterally Gastrointestinal: Yes: Normal Bowel Sounds, Soft. No: Rectal Bleeding, Tenderness, Tenderness, Epigastrium, Tenderness, Rebound ...Rectal Exam: Yes: Sphincter Tone Normal. No: Induration, Mass Genitourinary: No: CVA Tenderness - Left, CVA Tenderness - Right Breast(s): No: Mass, Skin Changes Musculoskeletal: No: Muscle Pain, Muscle Weakness Extremities: No: Cool, Cyanosis Edema: No Peripheral Pulses WNL: Yes Peripheral Pulses: Left Radial: 2+, Right Radial: 2+, Left Doralis Pedis: 2+, Right Dorsalis Pedis: 2+, Left Femoral: 2+, Right Femoral: 2+ Neurological: Yes: Alert, Oriented Psychiatric: Yes: Alert, Oriented Labs: CBC, BMP 02/18/19 06:00 02/18/19 06:00 INR, PTT INR 1.17 (0.83-1.09) H 02/16/19 23:22 Problem List - Problems (1) Foreign body alimentary tract Assessment/Plan: 68 yo male with unintentional ingested sharp foreign body [id number] with apparent failure to progress. He has no indication of perforated viscus, no peritonitis. serial imaging has shown that the FB briseno made adequate progress with gentle prep Non-operative management Clear liquid IVF hydration IV reglan GI consult hold ASA serial abdominal exams and imaging suppository, mild bowel prep, and prokinetic will follow Code(s): T18.9XXA - FOREIGN BODY OF ALIMENTARY TRACT, PART UNSP, INIT ENCNTR Qualifiers: Encounter type: initial encounter Qualified Code(s): T18.9XXA - Foreign body of alimentary tract, part unspecified, initial encounter (2) HTN (hypertension) Code(s): I10 - ESSENTIAL (PRIMARY) HYPERTENSION Qualifiers: Hypertension type: essential hypertension Qualified Code(s): I10 - Essential (primary) hypertension (3) CAD (coronary artery disease) Code(s): I25.10 - ATHSCL HEART DISEASE OF [place] CORONARY ARTERY W/O ANG PCTRS Qualifiers: Coronary Disease-Associated Artery/Lesion type: bypass graft [place] vs. transplanted heart: [place] heart (4) STEMI (ST elevation myocardial infarction) Code(s): I21.3 - ST ELEVATION (STEMI) MYOCARDIAL INFARCTION OF [facility] SITE
[2019-02-18] MEDS ORDERED: METOCLOPRAMIDE HCL INJECTION 10 MG/2 ML VIAL IVPUSH ONE (10:30)
[2019-02-18] MEDS ORDERED: BISACODYL 10 MG SUPP.RECT RC ONE (10:30)
[2019-02-18] MEDS: ENOXAPARIN NA (PORCINE) 40 MG/0.4 ML DISP.SYRIN SQ SCH (10:50)
[2019-02-18] MEDS: LACTATED RINGERS SOLUTION 1,000 ML/1,000 ML INFUS.BAG IV SCH (10:51)
[2019-02-18] MEDS ORDERED: SENNOSIDES 8.8 MG/5 ML BULK BOTTLE PO ONE (11:00)
[2019-02-18] MEDS ORDERED: D5-1/2NS+20 MEQ KCL - 20 MEQ/1,000 ML INFUS.BAG IV SCH (11:15)
--- NOTE | 2019-02-18 12:39 | PN.GI ---
GI Progress Note Subjective: No abdominal pain. No fevers, sweats, or chills. - Objective Vital Signs: Vital Signs Temperature 98.1 F 02/18/19 09:57 Pulse Rate 65 02/18/19 09:57 Respiratory Rate 20 02/18/19 09:57 Blood Pressure 135/62 02/18/19 09:57 O2 Sat by Pulse Oximetry (%) 98 02/18/19 09:00 Gastrointestinal Inspection: No: Distention ...Auscultate: Yes: Normoactive Bowel Sounds ...Palpate: No: Tenderness Labs: CBC, BMP 02/18/19 06:00 02/18/19 06:00 INR, PTT INR 1.17 (0.83-1.09) H 02/16/19 23:22 Assessment/Plan With today's plain film demonstrating progression of drill bit to transverse colon, favor continued observation for now. Should progression cease, would give prep and retrieve colonoscopically. Should symptoms arise, favor urgent laparotomy.
--- NOTE | 2019-02-18 13:50 | PN ---
Teaching Attending Note Name of Resident: Magdalena Gutierrez ATTENDING PHYSICIAN STATEMENT I saw and evaluated the patient. I reviewed the resident's note and discussed the case with the resident. I agree with the resident's findings and plan as documented. SUBJECTIVE:asymptomatic. had 2 BM yesterday, negative for blood. denies Cp, SOB , fever, chills, abdominal pain, N/V/C/D OBJECTIVE: Last Vital Signs Temp Pulse Resp BP Pulse Ox 98.1 F 65 20 135/62 98 02/18/19 09:57 02/18/19 09:57 02/18/19 09:57 02/18/19 09:57 02/18/19 09:00 General NAD Abdomen soft NT/ND normoactive BS ASSESSMENT AND PLAN: 68yo M with pMH CAD s/p stents x2 in 2005 and HTN sent to the ER by his dentist after it was noticed that he swallowed the drill bit 1. Swallowed foreign body- swallowed drill bit, found to be in the jejunum on arrival. AXR done this AM showing in the transverse colon. cont with gentle laxative use, NPO and IVF. GI and surgery on [place] if intervention is needed. 2. iron def anemia- hgb stable. offered venofer but patient refused. states he is already on iron supplements and does not want anymore treatment. encouraged to increase po intake on discharge as levels are still low 3. HTn- controlled. cont home meds 4. DVT ppx- lovenox
[2019-02-18] MEDS: BISACODYL 10 MG SUPP.RECT RC ONE (15:25)
--- NOTE | 2019-02-18 17:56 | PN ---
Physical Exam: SUBJECTIVE: Patient seen and examined. No discomfort. Had two formed BMs last night. No BM overnight, no blood per rectum. Endorses appeptite. OBJECTIVE: Vital Signs Period Temp Pulse Resp BP Sys/Parr Pulse Ox Last 24 Hr 98.1 F-98.8 F 65-88 18-20 135-156/56-93 98-100 GENERAL: The patient is awake, alert, and fully oriented, in no acute distress. HEAD: Normal with no signs of trauma. EYES: sclera anicteric, mild conjunctival pallor ENT: oral mucosa moist NECK: Trachea midline, full range of motion, supple. LUNGS: Breath sounds equal, clear to auscultation bilaterally, no wheezes, no crackles, no accessory muscle use. HEART: Regular rate and rhythm, S1, S2 without murmur, rub or gallop. ABDOMEN: Soft, nontender, nondistended, normoactive bowel sounds, no guarding, no rebound, no hepatosplenomegaly, no masses. EXTREMITIES: 2+ pulses, warm, well-perfused NEUROLOGICAL: Cranial nerves II through XII grossly intact. Normal speech, gait normal. Laboratory Results - last 24 hr 02/17/19 02/18/19 02/18/19 04:20 06:00 06:00 WBC 5.5 RBC 3.79 L Hgb 10.8 L Hct 32.8 L MCV 86.5 MCH 28.4 MCHC 32.8 RDW 17.9 H Plt Count 156 MPV 10.3 Sodium 143 Potassium 3.5 Chloride 109 H Carbon Dioxide 24 Anion Gap 9 BUN 9.4 Creatinine 0.9 Est GFR (CKD-EPI)AfAm 101.36 Est GFR (CKD-EPI)NonAf 87.45 Random Glucose 70 L Calcium 8.5 Transferrin 249 Active Medications Generic Name Dose Route Start Last Admin Trade Name Freq PRN Reason Stop Dose Admin Atorvastatin Calcium 20 mg 02/17/19 22:00 Lipitor - PO HS ROXANA Enoxaparin Sodium 40 mg 02/17/19 10:00 02/18/19 10:50 Lovenox - SQ Not Given DAILY ROXANA Hydrochlorothiazide 12.5 mg 02/17/19 10:00 Hctz - PO DAILY ROXANA Lactated Ringer's 1,000 ml in 1,000 mls @ 125 mls/hr 02/18/19 10:30 02/18/19 10:51 Lactated Ringers Solution IV 125 mls/hr ASDIR ROXANA Administration Metoprolol Succinate 25 mg 02/17/19 10:00 Toprol Xl - PO DAILY [facility] Vital Signs Temp 98.8 F 02/18/19 16:20 Pulse 69 02/18/19 16:20 Resp 20 02/18/19 16:20 BP 150/73 02/18/19 16:20 Pulse Ox 98 02/18/19 09:00 Intake & Output 02/17/19 02/18/19 02/18/19 23:59 11:59 23:59 Intake Total 410 462 Balance 410 462 Intake: IV 400 462 Normal Saline - 1,000 ml 400 462 @ 42 mls/hr IV ASDIR ROXANA Rx#:[id number] IVPB 0 Oral 10 Other: Voiding Method Toilet Toilet # Unmeasured Voids Void 2 2 Bowel Movement No No # Bowel Movements 1 ASSESSMENT/PLAN: 68 y.o. M PMH HTN, HLD, CAD s/p 2 stents placed 2005, diverticulosis w/ GI bleeds presenting from his dentists office for foreign body ingestion, concern for risk of perforation. #Foreign body ingestion -KUB(02/16/19): metallic foregin body seen in L hemiabd -KUB(02/17/19): metallic FB seen in RLQ -KUB(02/18/19 -PM): metallic FB seen in descending colon -clear liquid diet -Surgery (Dr. delacruz) consulted --clear liquid diet --serial abd exams, serial KUBs, --motility trial: reglan(IV), suppository, senna -C/w IVF #Hx of anemia -Hgb 11.4(02/16/19) -iron studies --reticulocytes 1.03 --transferrin pending, iron 40, TIBC 332, iron sat 12 -GI consulted: --will f/u as outpatient --considering colonoscopic retrieval if progression of FB ceases #HTN -- normotensive -S/p 5mg Lopressor IV -holding home meds #FEN -LR @125 ml/hr -monitor lytes -NPO #DVT PPX -early ambulation, SCDs -Holding LVX pending possible surgery Visit type - Emergency Visit Emergency Visit: No - New Patient This patient is new to me today: No - Critical Care Critical Care patient: No ATTENDING PHYSICIAN STATEMENT I saw and evaluated the patient. I reviewed the resident's note and discussed the case with the resident. I agree with the resident's findings and plan as documented. SUBJECTIVE: OBJECTIVE: ASSESSMENT AND PLAN:
[2019-02-19] MEDS ORDERED: BISACODYL 10 MG SUPP.RECT RC ONE ×2 (08:30→18:30)
[2019-02-19] MEDS: HYDROCHLOROTHIAZIDE 12.5 MG CAPSULE (FP) PO SCH (10:09)
[2019-02-19] MEDS: metoPROLOL SUCCINATE 25 MG TAB.SR.24H (FP) PO SCH (10:09)
[2019-02-19] MEDS: ENOXAPARIN NA (PORCINE) 40 MG/0.4 ML DISP.SYRIN SQ SCH (10:10)
[2019-02-19] MEDS: LACTATED RINGERS SOLUTION 1,000 ML/1,000 ML INFUS.BAG IV SCH (10:11)
--- NOTE | 2019-02-19 13:58 | PN ---
Teaching Attending Note Name of Resident: Magdalena Gutierrez ATTENDING PHYSICIAN STATEMENT I saw and evaluated the patient. I reviewed the resident's note and discussed the case with the resident. I agree with the resident's findings and plan as documented. SUBJECTIVE:had 2 loose BM yesterday. tolerating clears. no abdominal pain. denies CP, SOB, fever, chills, N/V/C/D OBJECTIVE: Last Vital Signs Temp Pulse Resp BP Pulse Ox 97.7 F 68 20 139/70 98 02/19/19 10:00 02/19/19 10:00 02/19/19 10:00 02/19/19 10:02/18/19 21:00 General NAD Abdomen soft NT/ND normoactive BS ASSESSMENT AND PLAN: 68yo M with pMH CAD s/p stents x2 in 2005 and HTN sent to the ER by his dentist after it was noticed that he swallowed the drill bit 1. Swallowed foreign body- swallowed drill bit, found to be in the jejunum on arrival. today looks like in sigmoid colon. on clears. cont gentle laxative and hydration. should pass without need for intervention. expectant management. GI and surgery on standby for risk of perforation and if needed surgical exporation 2. iron def anemia- hgb stable. offered venofer but patient refused. states he is already on iron supplements and does not want anymore treatment. encouraged to increase po intake on discharge as levels are still low 3. HTn- controlled. cont home meds 4. DVT ppx- lovenox
[2019-02-19] MEDS ORDERED: SENNOSIDES 8.6MG TABLET (FP) PO SCH (16:04)
[2019-02-19] MEDS: BISACODYL 10 MG SUPP.RECT PR ONE ×2 (16:15→16:19)
--- NOTE | 2019-02-19 16:21 | PN.GI ---
GI Progress Note Subjective: coverage for Dr Kyle reviewed abdominal xray--drill bit in the sigmoid colon - Objective Vital Signs: Vital Signs Temperature 97.9 F 02/19/19 14:00 Pulse Rate 64 02/19/19 14:00 Respiratory Rate 18 02/19/19 14:00 Blood Pressure 137/60 02/19/19 14:00 O2 Sat by Pulse Oximetry (%) 98 02/19/19 09:00 ...Palpate: Yes: Soft. No: Firm/Rigid, Guarding, Hepatomegaly, Mass, Pulsatile Mass, Splenomegaly, Tenderness, Tenderness, Epigastium, Tenderness, Rebound Labs: CBC, BMP 02/18/19 06:00 02/18/19 06:00 INR, PTT INR 1.17 (0.83-1.09) H 02/16/19 23:22 Problem List - Problems (1) Foreign body alimentary tract Assessment/Plan: R> transit to sigmoid colon - uneventful please recall as neccesary should be able to pass gi tract Code(s): T18.9XXA - FOREIGN BODY OF ALIMENTARY TRACT, PART UNSP, INIT ENCNTR Qualifiers: Encounter type: initial encounter Qualified Code(s): T18.9XXA - Foreign body of alimentary tract, part unspecified, initial encounter
[2019-02-19 16:45] VITALS: BMI 22.2
--- NOTE | 2019-02-19 18:02 | PN ---
Physical Exam: SUBJECTIVE: Patient seen and examined. No discomfort. Had two loose BMs last night. No blood per rectum. Endorses appeptite. OBJECTIVE: Vital Signs Period Temp Pulse Resp BP Sys/Parr Pulse Ox Last 24 Hr 97.7 F-98.6 F 64-74 18-20 137-153/60-88 98-98 GENERAL: The patient is awake, alert, and fully oriented, in no acute distress. HEAD: Normal with no signs of trauma. EYES: sclera anicteric, mild conjunctival pallor ENT: oral mucosa moist NECK: Trachea midline, full range of motion, supple. LUNGS: Breath sounds equal, clear to auscultation bilaterally, no wheezes, no crackles, no accessory muscle use. HEART: Regular rate and rhythm, S1, S2 without murmur, rub or gallop. ABDOMEN: Soft, nontender, nondistended, normoactive bowel sounds, no guarding, no rebound, no hepatosplenomegaly, no masses. EXTREMITIES: 2+ pulses, warm, well-perfused NEUROLOGICAL: Cranial nerves II through XII grossly intact. Normal speech, gait normal. Active Medications Generic Name Dose Route Start Last Admin Trade Name Freq PRN Reason Stop Dose Admin Atorvastatin Calcium 20 mg 02/17/19 22:00 Lipitor - PO HS ROXANA Enoxaparin Sodium 40 mg 02/17/19 10:00 02/19/19 10:10 Lovenox - SQ Not Given DAILY ROXANA Hydrochlorothiazide 12.5 mg 02/17/19 10:00 02/19/19 10:09 Hctz - PO Not Given DAILY ROXANA Metoprolol Succinate 25 mg 02/17/19 10:00 02/19/19 10:09 Toprol Xl - PO 25 mg DAILY ROXANA Administration Senna 1 tab 02/19/19 16:04 02/19/19 16:19 Senna - PO Not Given HS ROXANA Vital Signs Temp 98.6 F 02/19/19 16:30 Pulse 69 02/19/19 16:30 Resp 20 02/19/19 16:30 BP 149/88 02/19/19 16:30 Pulse Ox 98 02/19/19 09:00 Intake & Output 02/18/19 02/19/19 02/19/19 23:59 11:59 23:59 Intake Total 2075 200 Balance 2075 200 Weight 70.307 kg Intake: IV 1375 0 LACTATED RINGERS SOLUTION 1375 0 1,000 ml In 1,000 ml @ 125 mls/hr IV ASDIR ROXANA Rx#:[id number] Oral 700 200 Other: Voiding Method Toilet Toilet # Unmeasured Voids Void 2 1 2 Bowel Movement No Yes # Bowel Movements 2 Height 5 ft 10 in Body Mass Index (BMI) 22.2 ASSESSMENT/PLAN: 68 y.o. M PMH HTN, HLD, CAD s/p 2 stents placed 2005, diverticulosis w/ GI bleeds presenting from his dentists office for foreign body ingestion, concern for risk of perforation. #Foreign body ingestion -KUB(02/16/19): metallic foregin body seen in L hemiabd -KUB(02/17/19): metallic FB seen in RLQ -KUB(02/18/19 -PM): metallic FB seen in descending colon -KUB(02/19/19 -AM): metallic FB seen in sigmoid colon -clear liquid diet -Surgery (Dr. delacruz) consulted --clear liquid diet --serial abd exams, serial KUBs, --motility trial: reglan(IV), suppository, senna -C/w IVF #Hx of anemia -Hgb 11.4(02/16/19) -iron studies --reticulocytes 1.03 --transferrin pending, iron 40, TIBC 332, iron sat 12 -GI consulted: --will f/u as outpatient --considering colonoscopic retrieval if progression of FB ceases #HTN -- normotensive -S/p 5mg Lopressor IV -holding home meds #FEN -monitor lytes -CLD #DVT PPX -early ambulation, SCDs -Holding LVX pending possible surgery Visit type - Emergency Visit Emergency Visit: No - New Patient This patient is new to me today: No - Critical Care Critical Care patient: No ATTENDING PHYSICIAN STATEMENT I saw and evaluated the patient. I reviewed the resident's note and discussed the case with the resident. I agree with the resident's findings and plan as documented. SUBJECTIVE: OBJECTIVE: ASSESSMENT AND PLAN:
--- NOTE | 2019-02-19 18:20 | PN ---
Progress Note, Physician Chief Complaint: FB ingested History of Present Illness: 68 yo man PMH CAD (2 stents in 2005), HTN and HTN who presents to the ER after swallowing a drill bit at the dentists office. The dentist sent him for an Xray to confirm if he swallowed something or not. He has been stable with out abdominal pain. - Current Medication List Current Medications: Active Medications Atorvastatin Calcium (Lipitor -) 20 mg PO [facility] Enoxaparin Sodium (Lovenox -) 40 mg SQ DAILY [facility] Last Admin: 02/19/19 10:10 Dose: Not Given Hydrochlorothiazide (Hctz -) 12.5 mg PO DAILY [facility] Last Admin: 02/19/19 10:09 Dose: Not Given Metoprolol Succinate (Toprol Xl -) 25 mg PO DAILY [facility] Last Admin: 02/19/19 10:09 Dose: 25 mg Senna (Senna -) 1 tab PO HS [facility] Last Admin: 02/19/19 16:19 Dose: Not Given - Objective Vital Signs: Vital Signs Temperature 98.6 F 02/19/19 16:30 Pulse Rate 69 02/19/19 16:30 Respiratory Rate 20 02/19/19 16:30 Blood Pressure 149/88 02/19/19 16:30 O2 Sat by Pulse Oximetry (%) 98 02/19/19 09:00 Constitutional: Yes: Well Nourished, No Distress, Calm Eyes: Yes: Conjunctiva Clear, EOM Intact HENT: Yes: Atraumatic, Normocephalic Neck: Yes: Supple, Trachea Midline Cardiovascular: Yes: Regular Rate and Rhythm, S1, S2 Respiratory: Yes: Regular, CTA Bilaterally Gastrointestinal: Yes: Normal Bowel Sounds, Soft ...Rectal Exam: Yes: Deferred Genitourinary: No: CVA Tenderness - Left, CVA Tenderness - Right Breast(s): No: Mass, Skin Changes Musculoskeletal: No: Muscle Pain, Muscle Weakness Extremities: No: Cool, Cyanosis Edema: No Peripheral Pulses WNL: Yes Integumentary: No: Jaundice, Rash Neurological: Yes: Alert, Oriented Psychiatric: Yes: Alert, Oriented Labs: CBC, BMP 02/18/19 06:00 02/18/19 06:00 INR, PTT INR 1.17 (0.83-1.09) H 02/16/19 23:22 Problem List - Problems (1) Foreign body alimentary tract Assessment/Plan: 68 yo male with unintentional ingested sharp foreign body [id number] with apparent failure to progress. He has no indication of perforated viscus, no peritonitis. serial imaging has shown that the FB briseno made adequate progress with gentle prep. NOW FB IN SIGMOID COLON. This should be endoscopically accessible by GI, will defer to them in unable to pass. He will not require operative management. Clear liquid IVF hydration IV reglan GI consult hold ASA serial abdominal exams and imaging suppository, mild bowel prep, and prokinetic will follow peripherally Problems reviewed: Yes Code(s): T18.9XXA - FOREIGN BODY OF ALIMENTARY TRACT, PART UNSP, INIT ENCNTR Qualifiers: Encounter type: initial encounter Qualified Code(s): T18.9XXA - Foreign body of alimentary tract, part unspecified, initial encounter (2) HTN (hypertension) Problems reviewed: No Code(s): I10 - ESSENTIAL (PRIMARY) HYPERTENSION Qualifiers: Hypertension type: essential hypertension Qualified Code(s): I10 - Essential (primary) hypertension (3) CAD (coronary artery disease) Problems reviewed: No Code(s): I25.10 - ATHSCL HEART DISEASE OF [place] CORONARY ARTERY W/O ANG PCTRS Qualifiers: Coronary Disease-Associated Artery/Lesion type: bypass graft [place] vs. transplanted heart: [place] heart (4) STEMI (ST elevation myocardial infarction) Code(s): I21.3 - ST ELEVATION (STEMI) MYOCARDIAL INFARCTION OF UNSP SITE
[2019-02-19] MEDS ORDERED: METOCLOPRAMIDE HCL INJECTION 10 MG/2 ML VIAL IVPUSH ONE (18:30)
[2019-02-19] MEDS ORDERED: PT OWN MED DRAWER 7, Y5N ONE ×2 (20:31→20:59)
[2019-02-19] MEDS ORDERED: SENNOSIDES 8.8 MG/5 ML BULK BOTTLE PO SCH (22:00)
[2019-02-20] MEDS: metoPROLOL SUCCINATE 25 MG TAB.SR.24H (FP) PO SCH (09:48)
[2019-02-20] MEDS: HYDROCHLOROTHIAZIDE 12.5 MG CAPSULE (FP) PO SCH (09:48)
[2019-02-20] MEDS: ENOXAPARIN NA (PORCINE) 40 MG/0.4 ML DISP.SYRIN SQ SCH (09:48)
[2019-02-20] MEDS ORDERED: LISINOPRIL 20 MG TABLET (FP) PO SCH (10:00)
[2019-02-20 13:18] VITALS: TEMP 97.7
--- NOTE | 2019-02-20 13:54 | PN ---
Teaching Attending Note Name of Resident: Magdalena Gutierrez ATTENDING PHYSICIAN STATEMENT I saw and evaluated the patient. I reviewed the resident's note and discussed the case with the resident. I agree with the resident's findings and plan as documented. SUBJECTIVE:asymptomatic. had 3 small BM since yesterday. deneis Cp, SOB, fever, chills, N/V/C/D OBJECTIVE: Last Vital Signs Temp Pulse Resp BP Pulse Ox 97.7 F 76 20 156/75 98 02/20/19 09:00 02/20/19 09:00 02/20/19 09:00 02/20/19 09:00 02/20/19 09:00 General NAD Abdomen soft NT/ND normoactive BS ASSESSMENT AND PLAN: 68yo M with pMH CAD s/p stents x2 in 2005 and HTN sent to the ER by his dentist after it was noticed that he swallowed the drill bit 1. Swallowed foreign body- swallowed drill bit, found to be in the jejunum on arrival. now appears to have passed. other metallic density commented on imaging i think to be kidney stone as can be seen on initial CT. 2. iron def anemia- hgb stable. offered venofer but patient refused. states he is already on iron supplements and does not want anymore treatment. encouraged to increase po intake on discharge as levels are still low 3. HTn- controlled. cont home meds 4. DVT ppx- lovenox 5. can d/c home
[2019-02-20 14:43] VITALS: BP 143/68; PULSE 58
--- NOTE | 2019-02-20 16:06 | DS ---
Physical Exam: SUBJECTIVE: Patient seen and examined OBJECTIVE: Vital Signs Period Temp Pulse Resp BP Sys/Parr Pulse Ox Last 24 Hr 97.7 F-98.6 F 58-76 18-20 142-171/62-88 98 PHYSICAL EXAM GENERAL: The patient is awake, alert, and fully oriented, in no acute distress. HEAD: Normal with no signs of trauma. EYES: PERRL, extraocular movements intact, sclera anicteric, conjunctiva clear. ENT: Ears normal, nares patent, oropharynx clear without exudates, moist mucous membranes. NECK: Trachea midline, full range of motion, supple. LUNGS: Breath sounds equal, clear to auscultation bilaterally, no wheezes, no crackles, no accessory muscle use. HEART: Regular rate and rhythm, S1, S2 without murmur, rub or gallop. ABDOMEN: Soft, nontender, nondistended, normoactive bowel sounds, no guarding, no rebound, no hepatosplenomegaly, no masses. EXTREMITIES: 2+ pulses, warm, well-perfused, no edema. NEUROLOGICAL: Cranial nerves II through XII grossly intact. Normal speech, gait not observed. PSYCH: Normal mood, normal affect. SKIN: Warm, dry, normal turgor, no rashes or lesions noted. LABS HOSPITAL COURSE: Date of Admission:02/17/19 Date of Discharge: 02/20/19 Discharge Summary Problems reviewed: Yes Reason For Visit: FOREIGN BODY IN DIGESTIVE TRACT Condition: Guarded - Instructions Diet, Activity, Other Instructions: You were evaluated in the hospital for an ingested metallic foreign object. The metallic object has passed through your stool and imaging reveals that the object is no longer in your body. Follow-up in the following providers office: -PCP: for follow-up bloodwork to check your iron and hemoglobin, and for a Blood pressure check. -[facility](Dr Marion) or your own GI doctor for continued workup of your history of lower gastrointestinal bleed Medications: -NEW medications: hydrochlorothiazide 12.5mg daily, lisinopril 20mg daily -You are being started on ferrous sulfate supplements because bloodwork shows a low iron levels, please monitor for constipation as a side effect, can take over the counter meds as needed. -continued your other home medications Additional instructions: -regular diet as tolerated -regular activity as tolerated Please seek immediate medical attention or go to the ED if you experience: -severe abdominal pain, nausea, vomiting -bloody bowel movements Referrals: Jack Marion DO [Staff Physician] - Disposition: HOME - Home Medications Comprehensive Discharge Medication List: Ambulatory Orders Metoprolol Succinate [Toprol XL -] 25 mg PO DAILY 09/19/14 Aspirin [ASA -] 81 mg PO DAILY 11/02/15 Atorvastatin Calcium 10 mg PO DAILY 11/02/15 Ferrous Sulfate [Feosol] 325 mg PO DAILY #30 tablet 02/20/19 Hydrochlorothiazide [Hctz -] 12.5 mg PO DAILY 30 Days #30 cap 02/20/19 Lisinopril [Prinivil] 20 mg PO DAILY 30 Days #30 tablet 02/20/19 ATTENDING PHYSICIAN STATEMENT I saw and evaluated the patient. I reviewed the resident's note and discussed the case with the resident. I agree with the resident's findings and plan as documented. SUBJECTIVE: OBJECTIVE: ASSESSMENT AND PLAN:
== END 2019-02-20 14:58 | disposition home or self-care (01) | DRG 395 ==
LOC: JER 19:43 → JERFT 19:43 → JERBED 23:09 → OBSVTOIN 02-17 02:23 → J8W 02-17 06:03
PROVIDERS: ADMIT Internal Medicine; ATTEND Internal Medicine
DX: T18.3XXA Foreign body in small intestine, initial encounter (principal); I25.10 Atherosclerotic heart disease of native coronary artery without angina pectoris; I10 Essential (primary) hypertension; Z87.891 Personal history of nicotine dependence; D50.9 Iron deficiency anemia, unspecified; X58.XXXA Exposure to other specified factors, initial encounter; Y93.89 Activity, other specified; Y99.8 Other external cause status; Y92.531 Health care provider office as the place of occurrence of the external cause
CPT/HCPCS: 36415; 74018-TC-FY; 74019-TC-FY; 74176-TC; 80048; 80053; 82728; 83540; 83550; 83735; 84100; 84466; 85025; 85027; 85044; 85610; 86850; 86900; 86901; 93005; 93010; 97116-GP; 97161-GP; 99285-25; G0378; J7030

== ENCOUNTER 2021-03-17 05:59 | Inpatient (IN) | payer OTHER ==
[2021-03-17 07:06] LABS: BASO % 0.4 % (0-2.0); EOS % 1.1 % (0-4.5); HEMATOCRIT 34.3 % (35.4-49); HEMOGLOBIN 11.9 GM/dL (11.7-16.9); LYMPH % 23.6 % (8-40); MCH 33.5 pg (25.7-33.7); MCHC 34.8 g/dl (32.0-35.9); MEAN CELL VOLUME 96.5 fl (80-96); MEAN PLT VOLUME 10.2 fl (7.5-11.1); NEUT % 66.9 % (42.8-82.8); PLATELET COUNT 160 10^3/uL (134-434); RBC 3.56 M/mm3 (4.00-5.60); RDW 14.1 % (11.9-15.9)
[2021-03-17 07:09] LABS: INR 1.12 (0.83-1.09); PROTHROMBIN TIME (PATIENT) 13.1 SEC (9.7-13.0)
[2021-03-17 07:12] LABS: ACTIVATED PTT 26.1 SECONDS (25.2-36.5)
[2021-03-17 07:18] LABS: CHLORIDE 114 mmol/L (98-107); SODIUM 145 mmol/L (136-145)
[2021-03-17 07:20] LABS: ALBUMIN 3.2 g/dl (3.4-5.0); ANION GAP 3 MMOL/L (8-16); CALCIUM 8.5 mg/dL (8.5-10.1); CO2 28 mmol/L (21-32); GLUCOSE,RANDOM 169 mg/dL (74-106)
[2021-03-17 07:21] LABS: BLOOD UREA NITROGEN 17.4 mg/dL (7-18)
[2021-03-17 07:23] LABS: CREATININE 1.3 mg/dL (0.55-1.3); SGOT/AST 22 U/L (15-37)
[2021-03-17 07:25] LABS: BILIRUBIN,TOTAL 0.6 mg/dL (0.2-1); SGPT/ALT 21 U/L (13-61); TOT PROT 6.3 g/dl (6.4-8.2)
[2021-03-17 07:28] LABS: ALK PHOS 43 U/L (45-117)
[2021-03-17 11:05] LABS: BASO % 0.4 % (0-2.0); HEMATOCRIT 28.9 % (35.4-49); MCH 33.4 pg (25.7-33.7); MCHC 34.7 g/dl (32.0-35.9); MEAN CELL VOLUME 96.2 fl (80-96); MEAN PLT VOLUME 10.1 fl (7.5-11.1); MONO % 4.5 % (3.8-10.2); NEUT % 80.1 % (42.8-82.8); PLATELET COUNT 143 10^3/uL (134-434); RDW 13.9 % (11.9-15.9); WHITE BLOOD COUNT 8.7 K/mm3 (4.0-10.0)
[2021-03-17] MEDS: LACTATED RINGERS SOLUTION 1,000 ML/1,000 ML INFUS.BAG IV SCH (17:01)
[2021-03-17 17:28] LABS: HEMATOCRIT 27.1 % (35.4-49); HEMOGLOBIN 9.3 GM/dL (11.7-16.9); MCH 33.3 pg (25.7-33.7); MCHC 34.4 g/dl (32.0-35.9); MEAN CELL VOLUME 96.8 fl (80-96); MEAN PLT VOLUME 10.3 fl (7.5-11.1); PLATELET COUNT 128 10^3/uL (134-434); RDW 14.2 % (11.9-15.9); WHITE BLOOD COUNT 7.5 K/mm3 (4.0-10.0)
[2021-03-17 23:55] VITALS: BMI 21.2
[2021-03-18 08:21] LABS: BASO % 0.4 % (0-2.0); EOS % 0.9 % (0-4.5); HEMATOCRIT 25.1 % (35.4-49); HEMOGLOBIN 8.6 GM/dL (11.7-16.9); LYMPH % 27.2 % (8-40); MCHC 34.1 g/dl (32.0-35.9); MEAN CELL VOLUME 96.6 fl (80-96); MEAN PLT VOLUME 10.2 fl (7.5-11.1); MONO % 9.8 % (3.8-10.2); NEUT % 61.7 % (42.8-82.8); PLATELET COUNT 124 10^3/uL (134-434); RDW 14.4 % (11.9-15.9); WHITE BLOOD COUNT 7.6 K/mm3 (4.0-10.0)
[2021-03-18 08:52] LABS: BLOOD UREA NITROGEN 17.1 mg/dL (7-18); CALCIUM 8.8 mg/dL (8.5-10.1); MAGNESIUM 1.7 mg/dL (1.8-2.4)
[2021-03-18 08:55] LABS: CREATININE 0.9 mg/dL (0.55-1.3)
[2021-03-18 08:57] LABS: PHOSPHOROUS 2.3 mg/dL (2.5-4.9)
[2021-03-18] MEDS: metoPROLOL SUCCINATE 25 MG TAB.SR.24H (FP) PO SCH (09:08)
[2021-03-18] MEDS ORDERED: LISINOPRIL 20 MG TABLET PO SCH (10:00)
[2021-03-18] MEDS: LACTATED RINGERS SOLUTION 1,000 ML/1,000 ML INFUS.BAG IV SCH (18:05)
[2021-03-18] MEDS ORDERED: METOPROLOL TARTRATE 25 MG TABLET (FP) PO ONE (18:13)
[2021-03-19] MEDS: LACTATED RINGERS SOLUTION 1,000 ML/1,000 ML INFUS.BAG IV SCH ×2 (07:53→13:51)
[2021-03-19 11:50] LABS: BASO % 0.6 % (0-2.0); EOS % 2.3 % (0-4.5); HEMATOCRIT 24.5 % (35.4-49); HEMOGLOBIN 8.4 GM/dL (11.7-16.9); LYMPH % 27.7 % (8-40); MCH 32.8 pg (25.7-33.7); MCHC 34.2 g/dl (32.0-35.9); MEAN CELL VOLUME 96.1 fl (80-96); MEAN PLT VOLUME 9.6 fl (7.5-11.1); MONO % 10.7 % (3.8-10.2); NEUT % 58.7 % (42.8-82.8); PLATELET COUNT 125 10^3/uL (134-434); RBC 2.55 M/mm3 (4.00-5.60); RDW 14.2 % (11.9-15.9); WHITE BLOOD COUNT 6.2 K/mm3 (4.0-10.0)
[2021-03-19 12:08] LABS: CALCIUM 8.1 mg/dL (8.5-10.1)
[2021-03-19 12:09] LABS: BLOOD UREA NITROGEN 11.1 mg/dL (7-18)
[2021-03-19 12:12] LABS: CREATININE 0.9 mg/dL (0.55-1.3)
[2021-03-19] MEDS: metoPROLOL SUCCINATE 25 MG TAB.SR.24H (FP) PO SCH (13:50)
[2021-03-19 14:57] VITALS: BP 151/65; PULSE 86; TEMP 98.2
== END 2021-03-19 15:07 | disposition home or self-care (01) | DRG 378 ==
LOC: JER 05:59 → JERBED 13:05 → J5S 19:42
PROVIDERS: ADMIT Internal Medicine; ATTEND Internal Medicine
DX: K57.31 Diverticulosis of large intestine without perforation or abscess with bleeding (principal); R71.0 Precipitous drop in hematocrit; I10 Essential (primary) hypertension; E78.5 Hyperlipidemia, unspecified; I25.10 Atherosclerotic heart disease of native coronary artery without angina pectoris; Z98.61 Coronary angioplasty status; K64.8 Other hemorrhoids
CPT/HCPCS: 36415; 74175-TC; 80048; 80053; 82272; 82550; 82553; 82728; 83540; 83550; 83735; 84100; 84484; 85025; 85027; 85610; 85730; 86850; 86900; 86901; 93005; 93010; 99285-25; C9803; Q9967; U0003; U0005

== ENCOUNTER 2021-09-02 05:11 | Emergency (ER) | payer OTHER ==
[2021-09-02 05:24] VITALS: TEMP 98.1; BMI 22.9
[2021-09-02] MEDS ORDERED: metoPROLOL SUCCINATE 25 MG TAB.SR.24H (FP) PO ONE (05:32)
[2021-09-02] MEDS ORDERED: metoPROLOL SUCCINATE 25 MG TAB.SR.24H (FP) ONE (05:51)
[2021-09-02 08:28] LABS: BASO % 0.6 % (0-2.0); EOS % 0.6 % (0-4.5); HEMATOCRIT 40.4 % (35.4-49); HEMOGLOBIN 13.7 GM/dL (11.7-16.9); MCH 31.6 pg (25.7-33.7); MEAN PLT VOLUME 9.9 fl (7.5-11.1); MONO % 8.3 % (3.8-10.2); NEUT % 71.5 % (42.8-82.8); PLATELET COUNT 172 10^3/uL (134-434); RBC 4.35 M/mm3 (4.00-5.60); RDW 15.5 % (11.9-15.9); WHITE BLOOD COUNT 5.9 K/mm3 (4.0-10.0)
[2021-09-02 08:54] LABS: CALCIUM 9.2 mg/dL (8.5-10.1)
[2021-09-02 08:55] LABS: ALBUMIN 4.1 g/dl (3.4-5.0); BLOOD UREA NITROGEN 11.8 mg/dL (7-18)
[2021-09-02 09:00] LABS: BILIRUBIN,TOTAL 0.9 mg/dL (0.2-1); TOT PROT 7.8 g/dl (6.4-8.2)
[2021-09-02 09:09] VITALS: BP 163/89; PULSE 61
[2021-09-02 10:09] LABS: PH,URINE 8.5 (5.0-8.0); URINE APPEARANCE CLEAR; URINE BILIRUBIN NEGATIVE (NEGATIVE); URINE COLOR YELLOW; URINE GLUCOSE (UA) NEGATIVE (NEGATIVE); URINE KETONE NEGATIVE (NEGATIVE); URINE LEUK ESTERASE NEGATIVE (NEGATIVE); URINE NITRITE NEGATIVE (NEGATIVE); URINE PROTEIN NEGATIVE (NEGATIVE)
== END 2021-09-02 10:52 | disposition home or self-care (01) ==
LOC: JER 05:11
DX: I10 Essential (primary) hypertension (principal)
CPT/HCPCS: 36415; 71045-TC-FY; 80053; 81003; 84443; 84484; 85025; 87086; 93005; 93010; 99285-25

== ENCOUNTER 2021-11-02 01:25 | Emergency (ER) | payer OTHER ==
[2021-11-02 01:59] VITALS: PULSE 62; TEMP 98.2; BMI 22.9
[2021-11-02] MEDS ORDERED: amLODIPine BESYLATE 5 MG TABLET (FP) PO ONE (02:07)
[2021-11-02] MEDS ORDERED: amLODIPine BESYLATE 5 MG TABLET (FP) ONE (02:09)
[2021-11-02 02:49] VITALS: BP 185/80
== END 2021-11-02 03:15 | disposition home or self-care (01) ==
LOC: JER 01:25
DX: R03.0 Elevated blood-pressure reading, without diagnosis of hypertension (principal)
CPT/HCPCS: 93005; 93010; 99283-25

== ENCOUNTER 2022-08-06 13:15 | Observation (INO) | payer OTHER ==
[2022-08-06 14:05] VITALS: BMI 22.5
[2022-08-06 16:23] LABS: BASO % 0.3 % (0-2.0); EOS % 0.2 % (0-4.5); HEMATOCRIT 32.1 % (35.4-49); HEMOGLOBIN 10.9 GM/dL (11.7-16.9); LYMPH % 18.6 % (8-40); MCH 31.5 pg (25.7-33.7); MCHC 33.9 g/dl (32.0-35.9); MEAN CELL VOLUME 92.9 fl (80-96); MEAN PLT VOLUME 9.9 fl (7.5-11.1); MONO % 8.1 % (3.8-10.2); NEUT % 72.8 % (42.8-82.8); PLATELET COUNT 149 10^3/uL (134-434); RBC 3.46 M/mm3 (4.00-5.60); RDW 13.9 % (11.9-15.9); WHITE BLOOD COUNT 6.9 K/mm3 (4.0-10.0)
[2022-08-06 16:36] LABS: INR 1.15 (0.83-1.09); PROTHROMBIN TIME (PATIENT) 13.3 SEC (9.7-13.0)
[2022-08-06 16:39] LABS: ACTIVATED PTT 27.3 SECONDS (25.2-36.5)
[2022-08-06 16:42] LABS: ALBUMIN 3.2 g/dl (3.4-5.0); BLOOD UREA NITROGEN 15.4 mg/dL (7-18); CALCIUM 8.6 mg/dL (8.5-10.1)
[2022-08-06 16:45] LABS: CREATININE 0.9 mg/dL (0.55-1.3)
[2022-08-06 16:47] LABS: BILIRUBIN,TOTAL 0.7 mg/dL (0.2-1); TOT PROT 6.1 g/dl (6.4-8.2)
[2022-08-06 23:45] VITALS: RESP 18
[2022-08-07] MEDS ORDERED: SODIUM CHLORIDE 1,000 ML IV SCH (00:15)
[2022-08-07 08:35] LABS: HEMATOCRIT 28.5 % (35.4-49); HEMOGLOBIN 9.9 GM/dL (11.7-16.9); INR 1.18 (0.83-1.09); MCH 32.2 pg (25.7-33.7); MCHC 34.6 g/dl (32.0-35.9); MEAN CELL VOLUME 93.2 fl (80-96); MEAN PLT VOLUME 9.7 fl (7.5-11.1); PLATELET COUNT 148 10^3/uL (134-434); PROTHROMBIN TIME (PATIENT) 13.7 SEC (9.7-13.0); RBC 3.06 M/mm3 (4.00-5.60); RDW 13.8 % (11.9-15.9)
[2022-08-07 08:38] LABS: ACTIVATED PTT 25.3 SECONDS (25.2-36.5)
[2022-08-07 08:38] LABS: BASO % 0.3 % (0-2.0); EOS % 0.2 % (0-4.5); HEMATOCRIT 28.6 % (35.4-49); HEMOGLOBIN 9.9 GM/dL (11.7-16.9); LYMPH % 13.3 % (8-40); MCH 32.3 pg (25.7-33.7); MCHC 34.6 g/dl (32.0-35.9); MEAN CELL VOLUME 93.3 fl (80-96); MEAN PLT VOLUME 9.9 fl (7.5-11.1); MONO % 6.5 % (3.8-10.2); NEUT % 79.7 % (42.8-82.8); PLATELET COUNT 141 10^3/uL (134-434); RBC 3.07 M/mm3 (4.00-5.60); RDW 13.8 % (11.9-15.9); WHITE BLOOD COUNT 8.2 K/mm3 (4.0-10.0)
[2022-08-07 08:53] LABS: BLOOD UREA NITROGEN 17.4 mg/dL (7-18)
[2022-08-07 08:56] LABS: CALCIUM 8.5 mg/dL (8.5-10.1); MAGNESIUM 1.7 mg/dL (1.8-2.4); PHOSPHOROUS 2.4 mg/dL (2.5-4.9)
[2022-08-07] MEDS ORDERED: PANTOPRAZOLE SODIUM 40 MG VIAL IVPUSH SCH (10:00)
[2022-08-07] MEDS ORDERED: PANTOPRAZOLE SODIUM 40 MG VIAL ONE (10:25)
[2022-08-07] MEDS: LACTATED RINGERS SOLUTION 1,000 ML/1,000 ML INFUS.BAG IV SCH (10:32)
[2022-08-07] MEDS ORDERED: ATORVASTATIN CA 80 MG TABLET (FP) PO SCH (22:00)
[2022-08-08 08:37] LABS: BASO % 0.5 % (0-2.0); EOS % 2.7 % (0-4.5); HEMATOCRIT 25.7 % (35.4-49); HEMOGLOBIN 8.8 GM/dL (11.7-16.9); LYMPH % 25.5 % (8-40); MCH 31.9 pg (25.7-33.7); MCHC 34.3 g/dl (32.0-35.9); MEAN CELL VOLUME 93.2 fl (80-96); MEAN PLT VOLUME 9.9 fl (7.5-11.1); MONO % 9.6 % (3.8-10.2); NEUT % 61.7 % (42.8-82.8); PLATELET COUNT 127 10^3/uL (134-434); RBC 2.76 M/mm3 (4.00-5.60); WHITE BLOOD COUNT 5.8 K/mm3 (4.0-10.0)
[2022-08-08 08:46] LABS: INR 1.17 (0.83-1.09); PROTHROMBIN TIME (PATIENT) 13.5 SEC (9.7-13.0)
[2022-08-08 09:11] LABS: CALCIUM 8.2 mg/dL (8.5-10.1)
[2022-08-08 09:12] LABS: ALBUMIN 2.9 g/dl (3.4-5.0); BLOOD UREA NITROGEN 12.5 mg/dL (7-18); MAGNESIUM 1.8 mg/dL (1.8-2.4)
[2022-08-08 09:15] LABS: CREATININE 0.9 mg/dL (0.55-1.3)
[2022-08-08 09:17] LABS: TOT PROT 5.4 g/dl (6.4-8.2)
[2022-08-08] MEDS ORDERED: PANTOPRAZOLE 40 MG TABLET PO SCH (10:00)
[2022-08-08] MEDS ORDERED: amLODIPine BESYLATE 5 MG TABLET (FP) PO SCH (10:00)
[2022-08-08] MEDS: LACTATED RINGERS SOLUTION 1,000 ML/1,000 ML INFUS.BAG IV SCH (10:16)
[2022-08-08 12:48] LABS: MCH 32.4 pg (25.7-33.7); MCHC 34.8 g/dl (32.0-35.9); PLATELET COUNT 138 10^3/uL (134-434); RBC 2.79 M/mm3 (4.00-5.60); RDW 13.5 % (11.9-15.9); WHITE BLOOD COUNT 5.5 K/mm3 (4.0-10.0)
[2022-08-08 14:38] VITALS: BP 126/45; PULSE 70; TEMP 98.2
== END 2022-08-08 18:10 | disposition home or self-care (01) ==
LOC: JER 13:15 → JERBED 21:21 → INTOOBSV 21:21 → J6S 08-08 00:07
PROVIDERS: ADMIT Internal Medicine; ATTEND Internal Medicine
PROC: 3E033GC Introduction of Other Therapeutic Substance into Peripheral Vein, Percutaneous Approach (ICD-10-PCS; principal; 2022-08-06)
PROC: 3E0337Z Introduction of Electrolytic and Water Balance Substance into Peripheral Vein, Percutaneous Approach (ICD-10-PCS; 2022-08-06)
DX: K57.90 Diverticulosis of intestine, part unspecified, without perforation or abscess without bleeding (principal); I21.A1 Myocardial infarction type 2; K62.5 Hemorrhage of anus and rectum; I25.10 Atherosclerotic heart disease of native coronary artery without angina pectoris; I11.9 Hypertensive heart disease without heart failure; K64.9 Unspecified hemorrhoids; E78.5 Hyperlipidemia, unspecified
CPT/HCPCS: 0241U-QW; 36415; 74177-TC; 78278-TC; 80048; 80053; 82272; 83735; 84100; 84484; 85025; 85027; 85610; 85730; 86850; 86900; 86901; 93005; 93010; 96361; 96374; 99285-25; A9538; G0378; Q9967